=== PATIENT | female | born 1955 | race Asian ===

== ENCOUNTER 2017-06-03 13:48 | Emergency (ER) | payer MEDICAID, OTHER ==
[~2017-06-03] VITALS: Ht 158.8 cm; Wt 51.0 kg
[2017-06-03] MEDS ORDERED: OXYcodone/APAP 5/325MG TABLET PO ONE (16:30)
[2017-06-03] MEDS ORDERED: ONDANSETRON ODT 4 MG PO ONE (16:30)
[2017-06-03] MEDS ORDERED: OXYcodone/APAP 5/325MG TABLET ONE (16:34)
[2017-06-03] MEDS ORDERED: ONDANSETRON ODT 4 MG ONE (16:34)
[2017-06-03 18:08] VITALS: BP 184/75
== END 2017-06-03 18:47 | disposition home or self-care (01) ==
LOC: ED 18:41
DX: S52.591A Other fractures of lower end of right radius, initial encounter for closed fracture (principal); I10 Essential (primary) hypertension; W01.0XXA Fall on same level from slipping, tripping and stumbling without subsequent striking against object, initial encounter; Y93.89 Activity, other specified; Y99.8 Other external cause status; Y92.89 Other specified places as the place of occurrence of the external cause
CPT/HCPCS: 29125; 73080; 73110; 99284; Q0162